=== PATIENT | female | born 2000 | race Caucasian/White ===

== ENCOUNTER 2023-12-29 22:08 | Emergency (ER) | payer OTHER, SELFPAY ==
[2023-12-29 22:11] VITALS: BP 144/93; PULSE 85; RESP 20; TEMP 36; O2SAT 100; BMI 24.6
--- NOTE | 2023-12-29 22:49 | EDS_ITS ---
HPI History of Present Illness Chief Complaint: General Illness Narrative Narrative: Chief complaint and HPI: Near syncope. 23-year-old female with history of anxiety and well-controlled UC presents for evaluation of near syncope. Patient states that she was lying in bed trying to fall asleep when she became nauseous, warm, tingly throughout her body and felt as if she was going to pass out. Patient states this episode lasted about 15 minutes and has since resolved. She states 2 weeks ago she had some chest pain that lasted a couple hours but then resolved. She states she thought it was secondary to a panic attack. Patient does get intermittent panic attacks. She was recently started back on Wellbutrin. She states that she is currently waiting for a Holter monitor to arrive at her house. Patient does endorse some urinary frequency and nausea the past couple days. She denies any fever, chills, URI symptoms, shortness of breath, chest pain, abdominal pain, diarrhea, vomiting, dysuria. Patient states she is currently on her menstrual cycle. Review of systems: See HPI Medications: As listed on the chart Allergies: As listed on the chart PFSH: Per chart Vital signs: As listed on the chart. Reviewed. Physical exam: Gen: A&O x3, NAD Head: Normocephalic, atraumatic Eyes: No sclera icterus, conjunctiva clear ENT: Moist mucous membranes Neck: Trachea midline, No JVD CV: RRR, no murmurs, no peripheral edema Resp: Lungs CTA BL, no w/r/c GI: Abd soft, non-distended, non-tender, no r/r/g Musc: Full ROM, no deformity Skin: Warm, dry Neuro: Alert, oriented, grossly intact, sensation intact Psych: Cooperative, appropriate mood and affect [facility] Medical History (Updated 12/29/23 @ 22:39 by Erich Gutierrez) Anxiety Medical History no medical history Allergy/AdvReac Type Severity Reaction Status Date / Time No Known Allergies Allergy Verified 12/29/23 22:11 Family History no significant family his Surgical History (Updated 12/29/23 @ 22:37 by Erich Gutierrez) History of tonsillectomy Social History Smoking Status: Never smoker EXAM Physical Exam Const Vital Signs: 12/29/23 22:11 12/29/23 22:37 Temperature 96.8 F L Temperature Source Temporal Pulse Rate 85 Respiratory Rate 20 H Respiratory Effort Normal Respiratory Pattern Normal Blood Pressure 144/93 H Blood Pressure Mean 110 Pulse Ox 100 Oxygen Delivery Method Room Air MDM MDM MDM Narrative Medical decision making narrative: 23-year-old female with history of anxiety and UC presents for evaluation of near syncope. Symptoms are consistent with near syncope as well as possible panic attack. Differential diagnosis includes near syncope, panic attack, arrhythmia, electrolyte abnormality, UTI, suspect less likely PE or ACS. Patient is currently asymptomatic. Near-syncope workup ordered. CBC without leukocytosis or anemia. BMP with hypokalemia of 3.2. P.o. potassium ordered. No JB. Magnesium level unremarkable. Troponin unremarkable. D-dimer unremarkable. TSH is high at 3.830. Patient will need to follow-up for this outpatient as this could be the starting of hypothyroidism. I do not think any more emergent workup is needed. UA positive for blood. Patient is on her menstrual cycle. Negative for UTI. At this time, there is no clear etiology for patient's symptoms. I do suspect she had a panic attack. Patient was educated on the signs of a panic attack. She was given maneuvers to help her get through a panic attack. She was educated that she needs to follow-up with her PCP. She was educated that therapy and counseling may be helpful. She was educated on her TSH level and told to follow-up for this. She is educated on her hypokalemia and told to get [id number] potassium pills for next couple days. She confirmed understanding. Patient stable to discharge home. Return precautions explained. EKG: Interpreted by me/EM physician: EKG shows normal sinus rhythm without any acute ischemic changes. Heart rate 87 Diagnostic: Interpreted by me/EM physician: Chest x-ray without pneumonia, effusion, cardiomegaly, pneumothorax Impression: 1. Near syncope 2. Suspected panic attack with anxiety disorder 3. Hypokalemia Lab Data Labs: Laboratory Results - last 24 hr 12/29/23 12/29/23 22:55 23:00 WBC 7.3 RBC 4.22 Hgb 12.9 Hct 36.7 L MCV 87.0 MCH 30.6 MCHC 35.1 RDW Std Deviation 39.3 RDW Coeff of Javier 12.4 Plt Count 246 MPV 10.0 Immature Gran % (Auto) 0.400 Neut % (Auto) 53.1 Lymph % (Auto) 32.3 [place] % (Auto) 5.8 Eos % (Auto) 7.7 H Baso % (Auto) 0.7 Absolute Neuts (auto) 3.9 Absolute Lymphs (auto) 2.36 Nucleated RBC % 0 D-Dimer Quant (PE/DVT) 0.27 Sodium 142 Potassium 3.2 L Chloride 110 H Carbon Dioxide 24.0 Anion Gap 8 BUN 17 Creatinine 0.96 Estim Creat Clear Calc 80.21 Est GFR (MDRD) Af Amer 90 Est GFR (MDRD) Non-Af 74 BUN/Creatinine Ratio 17.6 Glucose 114 H Calcium 9.1 Magnesium 1.9 Troponin I High Sens 5 TSH 3.830 H Urine Color Straw Urine Clarity Clear Urine pH 7.0 Ur Specific [place] 1.010 Urine Protein Negative Urine Glucose (UA) Normal Urine Ketones Negative Urine Occult Blood 10 H Urine Nitrite Negative Urine Bilirubin Negative Urine Urobilinogen Normal Ur Leukocyte Esterase Negative Urine RBC 0-5 SEEN Urine WBC 0-5 SEEN Ur Squamous Epith Cells 0-5 SEEN Urine Bacteria RARE Urine Mucus 0 SEEN Urine Test Negative Discharge Plan Triage Chief Complaint: General Illness ED Provider: Fili Garcia Dx/Rx/DC Orders Primary Care Provider: Jana Blanco NP Referrals: Jana Blanco NP, AUDIOVISUAL PRODUCTION SPECIALIST-C [Primary Care Provider] - Print Language: Algerian
[2023-12-29 23:02] LABS: Absolute Lymphocyte Count 2.36 X10^3/uL (0.83-4.51); Absolute Neutrophil Count 3.9 X10^3/uL (2.0-7.7); Basophil# 0.05 X10^3/uL; Basophil% 0.7 % (0-1); Eosinophil# 0.56 X10^3/uL; Eosinophils% 7.7 % (0-5); Hematocrit 36.7 % (37-47); Hemoglobin 12.9 g/dL (12.0-15.0); Lymphocyte # 2.36 X10^3/ul (0.83-4.51); Lymphocyte % 32.3 % (19-41); Mean Corp Hgb Conc 35.1 g/dL (32-36); Mean Corpuscular Hgb 30.6 pg (27.0-32.0); Monocyte# 0.42 X10^3/uL; Monocyte% 5.8 % (0-10); NRBC Flagged by Analyzer 0 % (0-5); Neutrophil # 3.88 X10^3/uL (2.7-7.7); Neutrophil % 53.1 % (47-70); Platelet Count 246 K/mm3 (150-450); RBC Distribution Width CV 12.4 % (11.6-14.6); RBC Distribution Width SD 39.3 fl (35.1-43.9); Red Blood Count 4.22 M/mm3 (4.2-5.4); White Blood Count 7.3 K/mm3 (4.4-11.0)
[2023-12-29 23:07] LABS: Mucous, Urine 0 SEEN /hpf (<or=2+)
[2023-12-29 23:09] LABS: Color, Urine Straw (Yellow); Glucose, Dipstick Normal (Normal); Ketone-Dipstick Negative (Negative); Leukocyte Esterase-Dipstick Negative /ul (Negative); Nitrite-Dipstick Negative (Negative); Occult Blood-Urine 10 /ul (Negative); Protein-Dipstick Negative (Negative); Urine Bilirubin Dipstick Negative (Negative); Urine Clarity Clear (Clear); Urine Urobilinogen Normal (Normal)
[2023-12-29 23:14] LABS: Internal QC Validated? YES +Cl - CLEAR BKGD; Pregnancy, Urine Negative Negative
[2023-12-29 23:15] LABS: Record Kit Lot#,Urine Preg 869294
--- NOTE | 2023-12-29 23:17 | RAD_ITS ---
INDICATION: ari syncope EXAMINATION/TECHNIQUE: X-RAY - XR Chest 1 View COMPARISON: No relevant prior comparison study available FINDINGS: LINES/DEVICES: None. LUNGS: The lungs are well expanded. No consolidation, edema or effusion. No pneumothorax. MEDIASTINUM AND CARDIOVASCULAR STRUCTURES: Cardiac silhouette not enlarged. Central airways and mediastinal contour are unremarkable. BONES AND SOFT TISSUES: No acute abnormality. RAD/Chest 1 View (Portable) IMPRESSION: No acute pulmonary finding. Electronically Signed: Alfredo Dominguez MD at 23:57 EDT ,
[2023-12-29 23:18] LABS: Bacteria RARE /hpf (None Seen); Red Blood Cells-Urine 0-5 SEEN /hpf (0-5); Squamous Epithelial Cells - UA 0-5 SEEN /hpf (5-10); White Blood Cells 0-5 SEEN /hpf (0-5)
[2023-12-29 23:20] LABS: D-Dimer Quantitative (DVT/PE) 0.27 FEU/ug/m (0.27-0.49)
[2023-12-29 23:29] LABS: Anion Gap 8 (5-15); BUN 17 mg/dL (7-18); BUN/Creat Ratio 17.6 RATIO (10-20); Calcium,Total 9.1 mg/dL (8.5-10.1); Chloride 110 mmol/L (98-107); Creatinine, Serum 0.96 mg/dL (0.55-1.02); EST Glomerular Filtration Rate 74 mL/min (>60); Est Glom Filt Rate - Afr Amer 90 mL/min (>60); Estimated Creatinine Clearance 80.21 ml/min; Glucose 114 mg/dL (74-106); Magnesium 1.9 mg/dL (1.6-2.6); Potassium 3.2 mmol/L (3.5-5.1); Sodium Level 142 mmol/L (136-145); Troponin-I HS 5 pg/mL (3.0-54.0)
[2023-12-29] MEDS: Potassium Chloride Oral Tablet 20 MEQ 40 MEQ PO (23:48)
[2023-12-29] MEDS: Ondansetron ODT 4 MG Tablet PO (23:55)
[2023-12-29 23:56] VITALS: BP 124/89; PULSE 76; RESP 16; TEMP 36.6; O2SAT 98
== END 2023-12-29 23:58 | disposition home or self-care (01) ==
PROVIDERS: Emergency Provider Surgery; PCP Nurse Practitioner Primary Care; Visit Provider Surgery
DX: E87.6 Hypokalemia (principal); R35.0 Frequency of micturition; R55 Syncope and collapse; R11.0 Nausea
CPT/HCPCS: 71045; 80048; 81001; 81025; 83735; 84443; 84484; 85025; 85379; 93005; 99284; A4216

== ENCOUNTER 2024-04-06 16:14 | Emergency (ER) | payer OTHER, SELFPAY ==
[2024-04-06 16:15] VITALS: BP 133/101; PULSE 92; RESP 18; TEMP 36.6; O2SAT 100; BMI 25.7
--- NOTE | 2024-04-06 16:59 | EKG12_ITS ---
Test Reason : SC Blood Pressure : */* mmHG Vent. Rate : 87 BPM Atrial Rate : 87 BPM P-R Int : 148 ms QRS Dur : 80 ms QT Int : 356 ms P-R-T Axes : * 15 26 degrees QTcB Int : 428 ms Normal sinus rhythm Normal ECG Confirmed by YARI MOELLER, MAUREEN ([id number]), supervising editor news reel UTE HOOVER ([id number]) on 04/13/2024 6:50:39 AM Referred By: Confirmed By: MAUREEN GREENBERG MD
--- NOTE | 2024-04-06 17:00 | EDS_ITS ---
HPI History of Present Illness Chief Complaint: Palpitations Informant: patient and parent Narrative Narrative: 24-year-old female presenting to the emergency room with chest pain palpitations. Patient states over the past several weeks she has had several episodes similar to today. Today she was sitting on her couch when she states she got a generalized chilled sensation and weakness over her body. She then felt a pain in the central part of her chest followed by fast heart rate and a near syncopal-like feeling. She states that on Friday she was seen at [facility] in [place] where she was noted on the monitor have rates around 140. They took some photographs and show me and it appears that she has different P wave morphologies intermittently. She states they checked her electrolytes and thyroid the chest x-ray I do not think came back normal. She is set up to see cardiology in April. [facility] Medical History Anxiety Allergy/AdvReac Type Severity Reaction Status Date / Time naproxen Allergy Severe Anaphylaxis Verified 04/06/24 16:16 amoxicillin Allergy Intermediate Rash Verified 04/06/24 16:16 Surgical History History of tonsillectomy Social History Smoking Status: Never smoker ROS ROS ED ROS Narrative Fatigue Constitutional Constitutional ED: Reports chills; Denies fever(s) or weight loss Eyes Eyes: Denies change in vision or diplopia ENT ENT ED: Denies ear pain, rhinorrhea or sore throat Cardiovascular Cardiovascular: Reports chest pain, palpitations and racing heartbeat; Denies orthopnea Respiratory/Chest Respiratory/Chest: Denies cough, dyspnea or orthopnea Gastrointestinal Gastrointestinal: Denies abdominal pain, diarrhea, nausea or vomiting Genitourinary Genitourinary ED: Denies dysuria, hematuria or urinary frequency Musculoskeletal Musculoskeletal: Denies arthralgias or myalgias Integumentary Denies abscess or rash Neurologic Neurologic: Denies headache(s) or weakness Psychiatric Psychiatric: Denies anxiety, depression, suicidal ideation or suicidal thoughts Endocrine Endocrinology: Denies polydipsia, polyphagia or polyuria Allergic/Immunologic Allergic/Immunologic ED: Denies mouth swelling, tongue swelling or urticaria EXAM Physical Exam Const Vital Signs: 04/06/24 16:15 Temperature 98 F Temperature Source Oral Pulse Rate 92 Respiratory Rate 18 Blood Pressure 133/101 H Blood Pressure Mean 111 Pulse Ox 100 Oxygen Delivery Method Room Air Positive well nourished and well developed General Appearance ED: well developed HEENT Reports normocephalic, head/scalp atraumatic and moist mucous membranes Eyes PERRL and EOMs intact bilaterally Neck no lymphadenopathy, supple and no JVD Resp normal respiratory effort and clear to auscultation bilaterally Cardio regular rate, regular rhythm and no murmurs GI normal to inspection, nondistended, normoactive bowel sounds and non-tender Palpation: soft Back/Spine no CVA tenderness and normal ROM Extremity normal to inspection General Extremety ED: Negative for edema General Extremity: Negative for edema Neuro oriented x3 and CN's II-XII intact bilaterally Sensorium / Orientation: alert Motor Exam: strength 5/5 throughout Psych mental status grossly normal Mood & Affect: Negative for depressed or tearful Skin no rashes or lesions noted and no wounds Discharge Plan Triage Chief Complaint: Palpitations Other Complaint: Chest Pain ED Provider: Maik Livingston Dx/Rx/DC Orders Primary Care Provider: Jana Blanco NP Referrals: Jana Blanco NP, STUDENT SERVICES ADVISOR-C [Primary Care Provider] - Print Language: Hungarian
[2024-04-06 17:15] VITALS: BP 123/90; PULSE 80; RESP 17; O2SAT 99
[2024-04-06 17:49] LABS: Anion Gap 6 (5-15); BUN 15 mg/dL (7-18); BUN/Creat Ratio 19.5 RATIO (10-20); Calcium,Total 9.3 mg/dL (8.5-10.1); Chloride 107 mmol/L (98-107); Creatinine, Serum 0.77 mg/dL (0.55-1.02); EST Glomerular Filtration Rate 96 mL/min (>60); Est Glom Filt Rate - Afr Amer 116 mL/min (>60); Glucose 93 mg/dL (74-106); Magnesium 2.3 mg/dL (1.6-2.6); Potassium 4.2 mmol/L (3.5-5.1); Sodium Level 138 mmol/L (136-145)
[2024-04-06 18:00] VITALS: BP 112/87; PULSE 78; RESP 16; O2SAT 99
[2024-04-06 18:38] VITALS: BP 112/87; PULSE 78; RESP 16; TEMP 36.8; O2SAT 99
== END 2024-04-06 18:39 | disposition home or self-care (01) ==
PROVIDERS: Emergency Provider Emergency Medicine; PCP Nurse Practitioner Primary Care; Visit Provider Emergency Medicine
DX: R00.2 Palpitations (principal); R07.9 Chest pain, unspecified; F41.9 Anxiety disorder, unspecified; Z79.899 Other long term (current) drug therapy
CPT/HCPCS: 80048; 83735; 93005; 99283